=== PATIENT | male | born 2000 | race Two or more races ===

== ENCOUNTER 2020-01-23 15:48 | Emergency (ER) | payer SELFPAY | END 2020-01-23 16:20 | disposition left against medical advice (07) | LOC: ER 15:48 | DX: T14.8XXA Other injury of unspecified body region, initial encounter (principal); Z53.21 Procedure and treatment not carried out due to patient leaving prior to being seen by health care provider; W57.XXXA Bitten or stung by nonvenomous insect and other nonvenomous arthropods, initial encounter; Y93.89 Activity, other specified; Y92.89 Other specified places as the place of occurrence of the external cause; Y99.8 Other external cause status ==